=== PATIENT | male | born 1980 | race Caucasian/White ===

== ENCOUNTER → 2024-02-02 11:45 | Outpatient (REF) | payer BC, SELFPAY | LOC: PAVMRI 11:45 | PROVIDERS: ATTENDING PHYSICIAN Student in an Organized Health Care Education/Training Program; FAMILY PHYSICIAN Family Medicine | DX: M79.672 Pain in left foot (principal) | CPT/HCPCS: 73718 ==

== ENCOUNTER 2024-02-09 00:31 | Emergency (ER) | payer BC, SELFPAY ==
[2024-02-09 00:38] VITALS: BP 150/85
--- NOTE | 2024-02-09 00:43 | ED.GENMED ---
History of Present Illness
General
Chief Complaint: Seizure
Source: patient and spouse
Exam Limitations: altered mental status
Time Seen by Provider: 02/09/24 00:33
Nursing documentation reviewed up to this point in time: agreed with
History of Present Illness
History of Present Illness:
43-year-old male on Zoloft, apparently was away with his friends this weekend drinking got back yesterday or earlier today told his he was hung over she heard a noise saw seizure-like activity, EMS was called, said he was postictal, no tongue
bite, no bowel or bladder changes no history of seizure denies any illicit drugs does admit to drinking alcohol no fever no nausea or vomiting
Past History
Past History
ED Past Medical History: Psychiatric
Social History
Tobacco: Non-smoker
Alcohol: Occasional
Drug: None
Personal:
Living: with family
Employment: Employed
Review of Systems
Review of Systems
Unable to obtain full review of systems at this time due to: other (Postictal)
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
All Other Systems: Not applicable
EENT: Reports other (No tongue)
: Denies incontinence
Phy Exam
Physical Exam
Physical Exam:
Physical Exam
General: no apparent distress, not acutely ill somewhat slow to respond appears postictal
Neck: No tongue bite
Heart: s1/s2 regular rate and rhythm, no murmur. equal radial pulses.
Lungs: no acute respiratory distress. clear bilaterally
Abdomen: Not
Neuro: alert and oriented. no focal neurological deficits
Skin: no rash
Psychiatric cooperative
Extremities: no edema.
Course
Orders/Labs/Results
Orders:
Orders
02/09/24 00:40
Electrocardiogram (*1) Urgent
Reason for Study: QTc Monitoring
CT Head W/o Iv Contrast Urgent
Comment:
Reason For Exam: new seizrue
EKG- Treatment ONCE
0.9% Sodium Chloride 1000 ml [Nss] 1,000 ml IV BOLUS
02/09/24 00:43
Alcohol Urgent
Complete Blood Count/With Diff Urgent
Comprehensive Metabolic Panel Urgent
Magnesium Urgent
02/09/24 01:39
Ondansetron Injectable [Zofran] 4 mg IV NOW STA
02/09/24 03:09
Drug Screen, Urine [Urine Drug Abuse Screen] Urgent
Date Specimen was Collected: 02/09/24
Time Specimen was Collected: 03:06
Abnormal Lab Results
02/09/24
00:43
WBC 13.6 H 10^3/uL
(4.8-10.8)
Plt Count 405 H 10^3/uL
(130-400)
Abs Immat Gran (auto) 0.3 H 10^3/uL
(0-0.05)
Absolute Neuts (auto) 7.8 H 10^3/uL
(1.4-6.5)
Absolute Lymphs (auto) 4.4 H 10^3/uL
(1.2-3.4)
Absolute Monos (auto) 1.0 H 10^3/uL
(0.1-0.6)
Immature Gran % 1.8 H %
(0-0.5)
Carbon Dioxide 15 L mmol/L
(22-30)
Glucose 143 H mg/dl
(70-99)
Magnesium 2.5 H mg/dl
(1.6-2.3)
Albumin 5.3 H g/dl
(3.5-5.0)
02/09/24 00:43
02/09/24 00:43
Vital Signs
Initial and Last Documented VS:
Initial Vital Signs
Temp Pulse Ox
98.0 F 92
02/09/24 00:34 10/22/24 00:34
Last Documented Vital Signs
Temp Pulse Resp BP Pulse Ox
98.0 F 93 19 130/73 93
02/09/24 00:34 02/09/24 02:11 02/09/24 02:00 02/09/24 02:00 02/09/24 02:00
MDM/Problems Addressed
Differential Diagnosis Includes:
Seizure arrhythmia electrolyte abnormality toxic metabolic doubt CHECK CASHIER
MDM/Problems Addressed:
Possible seizure
*Critical Care Note
Total Time (30-74mins, 75-104mins- exclusive of procedures): Not Applicable
Update Note
Update Note:
Update patient more alert, CT noted reviewed with does sound like witnessed tonic-clonic seizure patient was instructed not to drive, suspect this is alcohol or toxin induced,
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
ED Attending Note
-
Portions of this chart may have been created with voice recognition software.� Occasional wrong word or��sound alike� substitutions may have occurred due to the inherent limitations of voice recognition software.
Discharge Plan
Departure
Patient Disposition: Home (Routine Discharge)
Date of Disposition: 02/09/24
Time of Disposition: 03:37
Patient with high blood pressure during this ER visit?: No
Condition: Good
Discharge Problem:
Seizure
Instructions: Seizures, Adult (DC)
Referrals:
Sung Patel MD [Family Provider] - Next open appointment
Sung Davies MD [Active] - Next open appointment
Activity Restrictions/Additional Instructions:
No driving until you are cleared by neurology
Interventions
Interventions:
*Risk Screen - Suicide Last Done: 02/09/24 00:34
*General Assessment Last Done: 02/09/24 00:34
*Neglect/Abuse Screening Last Done: 02/09/24 00:34
*ED COVID-19 Vaccine History Last Done: 02/09/24 00:34
ED- Cardiac Assessment Last Done: 02/09/24 00:34
ED- Neurological Assessment Last Done: 02/09/24 00:34
ED- Pulmonary Assessment Last Done: 02/09/24 00:34
Discharge Date and Time
Print Language: JAPANESE
[2024-02-09] MEDS: NSS 1000 IV (00:47)
[2024-02-09 00:51] LABS: % Basophils 0.7 % (0-2); % Eosinophils 0.7 % (0-6); % Immature Granulocytes 1.8 % (0-0.5); % Lymphocytes 32.4 % (20.5-51.1); % Monocytes 7.6 % (1.7-9.3); % Neutrophils 56.8 % (42.2-75.2); Absolute Basophils 0.1 10^3/uL (0-0.2); Absolute Eosinophils 0.1 10^3/uL (0-0.7); Absolute Immature Granulocytes 0.3 10^3/uL (0-0.05); Absolute Lymphocytes 4.4 10^3/uL (1.2-3.4); Absolute Neutrophils 7.8 10^3/uL (1.4-6.5); Hemoglobin 16.4 g/dL (13.0-18.0); Mean Corp Hgb Conc. 34.9 g/dL (33.0-37.0); Mean Corpuscular Hgb 30.4 pg (27.0-31.0); Mean Platelet Volume 9.9 fL (7.4-10.4); Nucleated Red Blood Cells % 0 % (-); Platelet Count 405 10^3/uL (130-400); Red Cell Dist. Width 12.1 % (11.5-14.5); White Blood Cell Count 13.6 10^3/uL (4.8-10.8)
[2024-02-09 01:04] LABS: Albumin 5.3 g/dl (3.5-5.0); Alkaline Phosphatase 69 U/L (38-126); Blood Urea Nitrogen 12 mg/dl (9-20); Calcium 10.1 mg/dl (8.4-10.2); Carbon Dioxide 15 mmol/L (22-30); Chloride 99 mmol/L (98-107); Estimated Creatinine Clearance 95 ml/min; Glucose 143 mg/dl (70-99); Magnesium 2.5 mg/dl (1.6-2.3); Sodium 143 mmol/L (135-145); Total Bilirubin 1.1 mg/dl (0.2-1.3); Total Protein 7.6 g/dl (6.3-8.2); eGFR > 60.00
[2024-02-09 01:07] LABS: Alcohol None Detected
[2024-02-09 01:10] VITALS: BP 136/78
[2024-02-09 01:14] LABS: ALT (SGPT) 41 U/L (0-50); AST (SGOT) 52 U/L (17-59)
[2024-02-09] MEDS: ZOFRAN 4 MG IV (01:44)
[2024-02-09 02:00] VITALS: BP 130/73
[2024-02-09 03:08] VITALS: BP 134/80
[2024-02-09 03:59] LABS: Amphetamines Negative (Negative); Barbiturates Negative (Negative); Benzodiazepines Negative (Negative); Buprenorphine Negative (Negative); Cocaine Positive (Negative); Marijuana Negative (Negative); Methadone Negative (Negative); Methamphetamines Negative (Negative); Opiates Negative (Negative); Phencyclidine Negative (Negative); Tricyclic Antidepressants Negative (Negative)
[2024-02-09 04:07] LABS: Fentanyl, Urine Negative (Negative)
== END 2024-02-09 04:08 | disposition home or self-care (01) ==
LOC: EMR 00:31
PROVIDERS: EMERGENCY PHYSICIAN Emergency Medicine; FAMILY PHYSICIAN Family Medicine
DX: R56.9 Unspecified convulsions (principal)
CPT/HCPCS: 99284; 70450; 80053; 80306; 80307; 82077; 83735; 85025; 93005

== ENCOUNTER → 2024-08-16 08:17 | Outpatient (REF) | payer BC, SELFPAY | LOC: HWRAD 08:17 | PROVIDERS: ATTENDING PHYSICIAN Chiropractor; FAMILY PHYSICIAN Family Medicine | DX: M54.2 Cervicalgia (principal); M54.6 Pain in thoracic spine | CPT/HCPCS: 72050; 72072 ==